=== PATIENT | female | born 1940 | race Caucasian/White ===

== ENCOUNTER 2017-08-01 13:29 | Emergency (ER) | payer MEDICARE, BC ==
[~2017-08-01] VITALS: Ht 157.5 cm; Wt 71.0 kg
[2017-08-01 13:31] VITALS: BP 138/76; PULSE 100; RESP 18; TEMP 98.7; O2SAT 96
[2017-08-01] MEDS ORDERED: SIMV40TA PO (13:55)
[2017-08-01] MEDS ORDERED: LISI10TA3 PO (13:55)
[2017-08-01] MEDS ORDERED: AMLO5TAB2 PO (13:55)
--- NOTE | 2017-08-01 14:12 | PD ---
HPI Chief Complaint: Pain: Acute or Chronic Time Seen by Provider: 13:54 Travel History International Travel<30 days: No Contact w/Intl Traveler<30days: No Traveled to known affect area: No History of Present Illness HPI 77-year-old female presents to emergency department for low back pain for 1 week. Dates that she overdid it and has been lifting her grandchildren and picking up toys and developed increasing pain of the last couple days. Her pain is located in the lower back, sacral iliac region described as moderate without radiation, worse with movement. Been taking ibuprofen with minimal relief. Denies fever, chills, chest pain, shortness of breath, weakness, IV drug use, personal history of cancer, numbness or tingling, loss of bowel or bladder function. She does see her primary care physician regularly and along with chiropractor medicine she does stretch. Otherwise her medical conditions include high blood pressure, cholesterol and occasional allergies. PFSH Past Medical History Hx Anticoagulant Therapy: Yes Cardiovascular Problems: Yes High Cholesterol: Yes Diminished Hearing: No Hypertension: Yes Medical other: Yes (CHRONIC BACK PAIN) Tetanus Vaccination: < 5 Years Influenza Vaccination: No ?: Not Social History Alcohol Use: Yes (RARE) Tobacco Use: No Substance Use: No Allergies-Medications (Allergen,Severity, Reaction): Coded Allergies: No Known Allergies (Unverified , 08/01/17) Reported Meds & Prescriptions Reported Meds & Active Scripts Active Robaxin (Methocarbamol) 500 Mg Tab 500 Mg PO TID 5 Days Reported Simvastatin 40 Mg Tab 40 Mg PO HS Amlodipine (Amlodipine Besylate) 5 Mg Tab 5 Mg PO HS Lisinopril 10 Mg Tab 10 Mg PO DAILY Review of Systems Except as stated in HPI: all other systems reviewed are Neg Physical Exam Narrative GENERAL: Well-developed well-nourished pleasant SKIN: Focused skin assessment warm/dry. HEAD: Atraumatic. Normocephalic. EYES: Pupils equal and round. No scleral icterus. No injection or drainage. ENT: No nasal bleeding or discharge. Mucous membranes pink and moist. NECK: Trachea midline. No JVD. No midline tenderness CARDIOVASCULAR: Regular rate and rhythm. No murmur appreciated. RESPIRATORY: No accessory muscle use. Clear to auscultation. Breath sounds equal bilaterally. MUSCULOSKELETAL: No obvious deformities. No clubbing. No cyanosis. No edema. BACK: No CVA tenderness. No rash. No point tenderness on palpation of the spine. Mild tenderness to palpation of the sacroiliac joints right greater than left with surrounding musculature NEUROLOGICAL: Awake and alert. No obvious cranial nerve deficits. Motor grossly within normal limits. Normal speech. PSYCHIATRIC: Appropriate mood and affect; insight and judgment normal. Data Data Last Documented VS Vital Signs Date Time Temp Pulse Resp B/P (MAP) Pulse Ox O2 Delivery O2 Flow Rate FiO2 08/01/17 13:31 98.7 100 18 138/76 (96) 96 MDM Medical Decision Making Medical Screen Exam Complete: Yes Emergency Medical Condition: Yes Differential Diagnosis Muscle strain versus sprain versus sacroiliitis Narrative Course 77-year-old female presents to emergency department for low back pain for approximately 1 week. Since she does have chronic low back pain however has worsened over this last week after lifting her grandchildren and picking up toys affect. States that she normally is able to control her pain with ibuprofen however has worsened. She has seen a chiropractor previously for her pain but decided to come in today. She denies red flag symptoms or history. Physical exam demonstrates a well-developed well-nourished 77-year-old female in mild distress. No point tenderness to the spine. Sacroiliac region with surrounding musculature mild tenderness step-off, deformity or crepitus. No indication for imaging studies. She understood diagnosis and condition and will follow up with primary care physician within a couple days. Use muscle relaxers sparingly Diagnosis Primary Impression: Acute exacerbation of chronic low back pain Referrals: Primary Care Physician Additional Instructions: Continue heat or ice for symptom relief. Perform light stretches of the lower back and legs, and alternate heat and ice packs. If you develop increased pain, weakness, fever, chills, or bowel or bladder issues, return to the ED for further treatment and evaluation. Follow up with your primary care physician in 2-3 days. Use caution when taking the muscle relaxers Scripts Methocarbamol (Robaxin) 500 Mg Tab 500 MG PO TID for Muscle Spasm for 5 Days, TAB 0 Refills Prov: Antonio Morrison MD 08/01/17 Disposition: 01 DISCHARGE HOME Condition: Stable Melba Byers Aug 01, 2017 14:12
[2017-08-01] MEDS ORDERED: ROBA500T PO (14:13)
== END 2017-08-01 14:40 | disposition home or self-care (01) ==
LOC: PHEFT 13:29
DX: M54.5 Low back pain (principal); G89.29 Other chronic pain
CPT/HCPCS: 99283